=== PATIENT | female | born 1960 ===

== ENCOUNTER 2023-05-20 08:00 | Outpatient (CLI) | payer MEDICARE, OTHER ==
[2023-05-20] VITALS (18 sets, daily range): BP systolic 67–175; BP diastolic 43–76; PULSE 61–84
== END 2023-05-20 23:00 | disposition home or self-care (01) ==
LOC: CARD DIAG 08:00
PROVIDERS: ATTEND Internal Medicine Interventional Cardiology
DX: R55 Syncope and collapse (principal)
CPT/HCPCS: 93660